=== PATIENT | male | born 1965 ===

== ENCOUNTER → 2022-06-30 07:39 | Outpatient (CLI) | payer BC, SELFPAY ==
--- NOTE | ~2022-06-30 | MR_ITS ---
EXAMINATION: MR shoulder RT wo con DATE: 06/30/2022 08:18 INDICATION: Incomplete tear of rotator cuff. Right shoulder pain. TECHNIQUE: Magnetic resonance imaging (MRI) of the right shoulder was performed without intravenous c ontrast. Sequences included axial PD-weighted FS FSE, coronal oblique PD-weighted FS FSE and T2-weigh vicky FS FSE, and sagittal oblique T2-weighted FS FSE and T1-weighted FSE. COMPARISON: None. FINDINGS: Coracoacromial arch: The acromion undersurface is curved in morphology (type II). There is severe acromioclavicular joint osteoarthritis including inferiorly directed osteophytes. There is mild subacromial/subdeltoid bursit is. Rotator cuff: There is mild supraspinatus tendinopathy with shallow bursal sided fraying. There is mild infraspinat us tendinopathy. Teres minor tendon is normal. Subscapularis tendon is normal. There is no asymmetric fatty atrophy of the rotator cuff muscle bellies. Biceps tendon and glenoid labrum: Biceps tendon is in bicipital groove. Intra-articular biceps tendon is normal. There is a tear of the superior labrum from 11:00 to 12:00 (SLAP tear). Fluid: There is no glenohumeral joint effusion. Bones/cartilage: There is shallow partial-thickness cartilage loss of glenoid and humeral head. IMPRESSION: 1. Mild rotator cuff tendinopathy with shallow bursal sided fraying of supraspinatus tendon. 2. Mild glenohumeral joint chondrosis. SLAP tear. 3. Severe acromioclavicular joint osteoarthritis. 4. Mild subacromial/subdeltoid bursitis. Reviewed, dictated and finalized at location A. [employer] IMPRESSION: 1. Mild rotator cuff tendinopathy with shallow bursal sided fraying of supraspi natus tendon. 2. Mild glenohumeral joint chondrosis. SLAP tear. 3. Severe acromioclavicular joint osteoarthritis. 4. Mild subacromial/subdeltoid bursitis.
== END ==
PROVIDERS: PCP Internal Medicine; Visit Provider Orthopaedic Surgery
DX: M75.111 Incomplete rotator cuff tear or rupture of right shoulder, not specified as traumatic (principal); M75.31 Calcific tendinitis of right shoulder
CPT/HCPCS: 73221